=== PATIENT | male | born 1945 | race Hispanic/Latino ===

== ENCOUNTER 2024-01-20 18:44 | Emergency (ER) | payer MEDICARE ==
[2024-01-20 19:58] LABS: #Basophils Less than 0.03 10x3/uL (0.0-0.2); #Eosinphils Less than 0.03 10x3/uL (0.0-0.7); %Eosinophils 0.2 % (0.0-10.0); %Lymphocytes 8.9 % (21.0-51.0); %Monocytes 0.7 % (0.0-10.0); Hematocrit 39.2 % (42.0-52.0); Mean Corpuscular HGB CONC 33.2 g/dL (32.0-36.0); Mean Corpuscular Hemoglobin 30.2 pg (27.0-31.0); Mean Platelet Volume 12.8 fL (7.4-10.4); Platelet Count 123 10x3/uL (130-400); RBC Distribution Width 13.2 % (11.5-14.5); Red Blood Cell (RBC) Count 4.31 mill/uL (4.70-6.10)
[2024-01-20 20:14] LABS: Prothrombin Time 12.8 sec (12.0-14.7)
[2024-01-20 20:15] LABS: PTT 29.2 sec (22.9-36.1)
[2024-01-20 20:20] LABS: ALT (SGPT) 24 U/L (8-55); AST (SGOT) 25 U/L (5-34); Albumin 3.7 g/dL (3.4-4.8); Alkaline Phosphatase 74 U/L (40-110); Anion Gap 13 mmol/L (10-20); BUN (Urea Nitrogen) 18 mg/dL (8.4-25.7); Bilirubin, Total 0.5 mg/dL (0.2-1.2); Calc. Creatinine Clearance 0 mL/min (70-130); Calcium 8.6 mg/dL (7.8-10.44); Carbon Dioxide 21 mmol/L (23-31); Chloride 110 mmol/L (98-107); Estimated GFR 71; Glucose 140 mg/dL (83-110); Potassium 4.1 mmol/L (3.5-5.1); Protein, Total 6.7 g/dL (5.8-8.1); Sodium 140 mmol/L (136-145)
== END 2024-01-20 23:47 | disposition home or self-care (01) ==
LOC: ERS 18:44
DX: S01.81XA Laceration without foreign body of other part of head, initial encounter (principal); I50.9 Heart failure, unspecified; W17.89XA Other fall from one level to another, initial encounter
CPT/HCPCS: 36415; 70450; 80053; 85025; 85610; 85730; 93005